=== PATIENT | male | born 1995 | race African-American/Black ===

== ENCOUNTER 2024-02-16 17:22 | Emergency (ER) | payer MEDICAID ==
[~2024-02-16] VITALS: Ht 172.7 cm; Wt 77.0 kg
[2024-02-16 17:30] VITALS: O2SAT 100
[2024-02-16] MEDS ORDERED: DOXY100T2 MT (18:08)
[2024-02-16 18:42] LABS: CLARITY URINE CLEAR (CLEAR); COLOR URINE YELLOW (YELLOW); GLUCOSE URINE NEGATIVE (NEGATIVE); KETONES URINE TRACE (NEGATIVE); LEUKOCYTE ESTERASE URINE TRACE (NEGATIVE); NITRITE URINE NEGATIVE (NEGATIVE); OCCULT BLOOD URINE NEGATIVE (NEGATIVE); PROTEIN URINE NEGATIVE (NEGATIVE); SPECIFIC GRAVITY URINE 1.027 (1.005-1.030)
[2024-02-16 19:04] VITALS: BP 124/77; PULSE 80; RESP 16; TEMP 36.89184; O2SAT 100
[2024-02-16] MEDS: CEFTRIAXONE SODIUM 500MG VIAL IM ONE (19:05)
[2024-02-16 19:07] LABS: BACTERIA URINE 1+
[2024-02-16 19:08] LABS: SQUAMOUS EPITHELIAL CELL URINE FEW /lpf (RARE/1+)
[2024-02-19 04:10] LABS: CHLAMYDIA TRACHOMATIS NAA Positive (Negative); NEISSERIA GONORRHOEAE NAA Negative (Negative)
== END 2024-02-16 19:05 | disposition home or self-care (01) ==
LOC: ER 17:22
DX: R30.0 Dysuria (principal); Z11.3 Encounter for screening for infections with a predominantly sexual mode of transmission; Z98.890 Other specified postprocedural states
CPT/HCPCS: 81003; 87491; 87591; 96372; 99283